=== PATIENT | female | born 1990 | race Caucasian/White ===

== ENCOUNTER 2017-03-22 12:44 | Emergency (ER) | payer OTHER ==
[2017-03-22 13:20] LABS: GRAN # 20.2 10_X3_uL (1.6-6.1); GRAN % 91.1 % (34.0-71.1); HEMATOCRIT 44.8 % (34-45); HEMOGLOBIN 15.4 g/dL (11.2-15.7); LYMPH # 1.4 10_X3_uL (1.2-3.7); LYMPH % 6.1 % (19.3-51.7); MEAN CORPUSCULAR HEMOGLOBIN 30.3 pg (27.0-33.0); MEAN CORPUSCULAR HGB CONC 34.4 g/dL (32.0-36.0); MEAN CORPUSCULAR VOLUME 88.2 fL (79-95); MEAN PLATELET VOLUME 13.1 fl (7.5-11.5); MONO # 0.6 10_X3_uL (0.2-0.9); MONO % 2.8 % (4.7-12.5); PLATELET COUNT 217 x10_3/uL (182-369); RED BLOOD COUNT 5.08 x10_6/uL (3.9-5.2); RED CELL DISTRIBUTION WIDTH 14.9 % (11.7-14.4)
[2017-03-22 13:27] LABS: BLOOD UREA NITROGEN 15 mg/dL (7-18); CALCIUM 10.2 mg/dL (8.7-10.7); CARBON DIOXIDE 18 mmol/L (21-32); CREATININE 0.7 mg/dL (0.6-1.3); GLUCOSE,RANDOM 153 mg/dL (70-99); SODIUM 138 mmol/L (136-145)
[2017-03-22 13:32] LABS: WHITE BLOOD COUNT 22.2 x10_3/uL (4.0-10.0)
== END 2017-03-22 15:45 | disposition home or self-care (01) ==
LOC: ER 12:44
PROVIDERS: General Practice
DX: R07.89 Other chest pain (principal); D72.829 Elevated white blood cell count, unspecified; N20.0 Calculus of kidney; M51.16 Intervertebral disc disorders with radiculopathy, lumbar region; M51.26 Other intervertebral disc displacement, lumbar region; K76.0 Fatty (change of) liver, not elsewhere classified; R00.0 Tachycardia, unspecified; G89.29 Other chronic pain; M54.9 Dorsalgia, unspecified; F17.210 Nicotine dependence, cigarettes, uncomplicated; Z79.891 Long term (current) use of opiate analgesic; Z88.5 Allergy status to narcotic agent; Z88.1 Allergy status to other antibiotic agents; Z88.8 Allergy status to other drugs, medicaments and biological substances
CPT/HCPCS: 36415; 71010; 71260; 72128; 72131; 80048; 85025; 85379; 93005; 96374; 99070; 99285-25; J7040; Q9967